=== PATIENT | female | born 1935 | race Caucasian/White ===

== ENCOUNTER 2017-09-03 14:27 | Inpatient (IN) | payer MEDICARE, OTHER ==
[~2017-09-03] VITALS: Ht 157.5 cm; Wt 55.8 kg
[~2017-09-03 14:27] MED LIST: ACETAMINOPHEN325 M1; AVELOX 400 MG400 M1; HI-CAL500 MG; MULTIVITAMINS; NORCO 5-325 TA1 EACH PO; SYNTHROID75 MCG PO; ZESTRIL40 MG
[2017-09-03 14:30] VITALS: BP 118/40
[2017-09-03 14:59] LABS: HEMATOCRIT 35.6 % (37.0-47.0); MCHC 33.7 g/dL (28.0-37.0); MCV 92.1 fL (80.0-100.0); MPV 10.4 fl. (7.2-11.1); NUCLEATED RBCS 0 /100WBC; RBC 3.87 mil/uL (4.20-5.00); RDW-CV 14.5 % (10.5-14.5); WBC 4.9 thou/uL (4.0-11.0)
[2017-09-03 15:08] LABS: PLATELET COUNT* 38 thou/uL (150-400)
[2017-09-03 15:15] LABS: BE -0.9 mmol/L (-2 to +3); HCO3 22.6 mmol/L (22.0-26.0); PCO2 34.1 mmHg (35.0-45.0); PO2 122.7 mmHg (75.0-100.0)
[2017-09-03 15:24] LABS: ANION GAP 9 mmol/L (7-16); BUN 25 mg/dL (7-18); CALCIUM 8.5 mg/dL (8.5-10.1); CHLORIDE 98 mmol/L (98-107); CO2 25 mmol/L (21-32); CREATININE 1.1 mg/dL (0.6-1.3); GLUCOSE 128 mg/dL (70-99); POTASSIUM 3.9 mmol/L (3.5-5.1); SODIUM 132 mmol/L (136-145)
[2017-09-03 15:31] LABS: ALBUMIN 3.2 g/dL (3.4-5.0); ALKALINE PHOSPHATASE 44 U/L (46-116); SGOT 25 U/L (15-37); SGPT 27 U/L (30-65); TOTAL BILIRUBIN 0.4 mg/dL (<0.1-1.0); TOTAL PROTEIN 6.4 g/dL (6.4-8.2); TROPONIN-I LEVEL <0.06 ng/mL (<0.06)
[2017-09-03 15:57] LABS: ABSOLUTE LYMPHOCYTES 1.1 thou/uL (0.8-5.3); ABSOLUTE MONOCYTES 0.5 thou/uL (0.0-1.2); ABSOLUTE NEUTROPHILS 3.2 thou/uL (1.6-8.1)
[2017-09-03 16:00] LABS: PLATELET ESTIMATE DECREASED
[2017-09-03 16:09] LABS: APTT 35.3 Seconds (25.0-31.3); INR 1.1; PROTIME 10.6 Seconds (9.20-11.50)
[2017-09-03 16:21] LABS: URINE BILIRUBIN NEGATIVE (Negative); URINE BLOOD NEGATIVE (Negative); URINE CLARITY CLEAR; URINE COLOR YELLOW; URINE GLUCOSE-RANDOM NEGATIVE (Negative); URINE KETONES TRACE (Negative); URINE LEUKOCYTES-REFLEX TRACE (Negative); URINE NITRITE-REFLEX NEGATIVE (Negative); URINE PROTEIN TRACE (Negative); URINE UROBILINOGEN 0.2 E.U./dl (0.2-1.0)
[2017-09-03 16:32] LABS: HYALINE CASTS >10 Many /LPF (None Seen); MUCUS None Seen strn/LPF (None Seen); SQUAMOUS 4-10 Moderate /LPF (0-3)
[2017-09-03 16:33] LABS: BACTERIA-REFLEX 1-9 Few /HPF (None Seen); CRYSTALS None Seen /LPF (None Seen)
[2017-09-03 16:34] LABS: URINE RBC None Seen /HPF (0-2); URINE WBC-REFLEX 6-15 Few /HPF (0-5)
[2017-09-03 20:00] VITALS: BP 124/52
[2017-09-03 23:53] VITALS: BP 139/55
[2017-09-04] VITALS (7 sets, daily range): BP systolic 125–163; BP diastolic 44–90
[2017-09-04 11:27] LABS: ABSOLUTE LYMPHOCYTES 1.6 thou/uL (0.8-5.3); ABSOLUTE MONOCYTES 0.6 thou/uL (0.0-1.2); ABSOLUTE NEUTROPHILS 1.5 thou/uL (1.6-8.1); BASOPHILS 0.6 %; EOSINOPHILS 0.4 %; HEMATOCRIT 32.5 % (37.0-47.0); HEMOGLOBIN 11.1 gm/dL (12.0-15.0); LYMPHOCYTES 42.4 %; MCH 31.3 pg (26.0-34.0); MCHC 34.1 g/dL (28.0-37.0); MCV 91.8 fL (80.0-100.0); MONOCYTES 15.9 %; MPV 9.4 fl. (7.2-11.1); NUCLEATED RBCS 0 /100WBC; POLYS 40.7 %; RBC 3.54 mil/uL (4.20-5.00); RDW-CV 14.5 % (10.5-14.5); WBC 3.8 thou/uL (4.0-11.0)
[2017-09-04 11:39] LABS: PLATELET COUNT* 46 thou/uL (150-400)
[2017-09-04] MEDS ORDERED: FLONASE 0.05%50 MCG NASAL (11:41)
[2017-09-04 12:00] LABS: CALCIUM 8.1 mg/dL (8.5-10.1); CREATININE 0.6 mg/dL (0.6-1.3); POTASSIUM 3.8 mmol/L (3.5-5.1)
--- NOTE | 2017-09-04 15:55 | 2DMMODE ---
[place] [address] 2 D/M-MODE ECHOCARDIOGRAM Name: IVAN VEE Room: [address] IN [facility]#: [id number] Admission: 09/03/17 Attend Phys: Frank Mcginnis Discharge: Date of : 39 Date of Service: 09/04/17 1555 Report #: [id number] THIS REPORT FOR: //name// APPROVED REPORT Study performed: 09/04/2017 11:27:10 EXAM: Comprehensive 2D, Doppler, and color-flow Echocardiogram Patient Location: In-Patient Room #: [facility] Status: routine BSA: 1.60 HR: 72 bpm BP: 127/47 mmHg Rhythm: NSR Other Information Study Quality: Good Indications Congestive Heart Failure 2D Dimensions LVEF(%): 65.87 (>50%) IVSd: 12.21 (7-11mm) LVOT Diam: 19.57 (18-24mm) LVDd: 37.06 mm PWd: 10.76 (7-11mm) Ascending Ao: 31.54 (22-36mm) LVDs: 23.88 (25-40mm) Aortic Root: 28.87 mm Dempsey's LVEF: 65.87 % Volumes Left Atrial Volume (Systole) LA ESV Index: 27.90 mL/m2 Aortic Valve AoV Peak Sergei.: 1.49 m/s AO Peak Gr.: 8.89 mmHg LVOT Max P.75 mmHg AO Mean Gr.: 5.29 mmHg LVOT Mean P.69 mmHg LVOT Max V: 0.97 m/s AO V2 VTI: 33.34 cm LVOT Mean V: 0.59 m/s KIKO (VTI): 1.96 cm2 LVOT V1 VTI: 21.79 cm Mitral Valve E/A Ratio: 0.82 [place] [address] 2 D/M-MODE ECHOCARDIOGRAM Name: IVAN VEE Room: [address] IN .R.#: [id number] Admission: 09/03/17 Attend Phys: Frank Mcginnis Discharge: Date of : 39 Date of Service: 09/04/17 1555 Report #: [id number] MV Decel. Time: 192.69 ms MV E Max Sergei.: 0.92 m/s MV PHT: 55.88 ms MVA (PHT): 3.94 cm2 TDI E/Lateral E': 10.22 E/Medial E': 8.36 Medial E' Sergei.: 0.11 m/s Lateral E' Sergei.: 0.09 m/s Pulmonary Valve PV Peak Sergei.: 0.82 m/s PV Peak Gr.: 2.68 mmHg Tricuspid Valve TR Peak Gr.: 26.60 mmHg RVSP: 31.00 mmHg Left Ventricle The left ventricle is normal size. There is normal LV segmental wall motion. There is normal left ventricular wall thickness. Left ventricular systolic function is normal. The left ventricular ejection fraction is within the normal range. LVEF is 60-65%. Grade I - abnormal relaxation pattern. Right Ventricle The right ventricle is normal size. The right ventricular systolic function is normal. Atria The left atrium size is normal. The right atrium size is normal. Aortic Valve Mild aortic valve sclerosis. No aortic regurgitation is present. No hemodynamically significant valvular aortic stenosis. Mitral Valve The mitral valve is normal in structure. Trace mitral regurgitation. No evidence of mitral valve stenosis. Tricuspid Valve The tricuspid valve is normal in structure. Mild tricuspid regurgitation. The RVSP is 30-35 mmHg. Pulmonic Valve The pulmonary valve is normal in structure. There is no pulmonic [place] [address] 2 D/M-MODE ECHOCARDIOGRAM Name: VEEIVAN Room: [address] IN [facility]#: [id number] Admission: 09/03/17 Attend Phys: Frank Mcginnis Discharge: Date of : 39 Date of Service: 09/04/17 1555 Report #: [id number] Great Vessels The aortic root is normal in size. IVC is normal in size and collapses with >50% inspiration Pericardium There is no pericardial effusion. <Conclusion> The left ventricle is normal size. There is normal left ventricular wall thickness. Left ventricular systolic function is normal. The left ventricular ejection fraction is within the normal range. LVEF is 60-65%. Grade I - abnormal relaxation pattern. The right ventricle is normal size. The left atrium size is normal. Mild aortic valve sclerosis. No aortic regurgitation is present. No hemodynamically significant valvular aortic stenosis. The mitral valve is normal in structure. Trace mitral regurgitation. Mild tricuspid regurgitation. The RVSP is 30-35 mmHg. IVC is normal in size and collapses with >50% inspiration There is no pericardial effusion. There is normal LV segmental wall motion. <ELECTRONICALLY SIGNED> By: Mor Burrell MD, FACC 09/04/17 1555 1555 1555 Mor Burrell MD, FACC /INF
--- NOTE | 2017-09-04 16:18 | EKG ---
[place] [address] ELECTROCARDIOGRAM REPORT Name: IVAN VEE Room: [address] IN [facility]#: [id number] Admission: 09/03/17 Attend Phys: Mary Anne Polanco Discharge: Date of : 39 Report #: [id number] THIS REPORT FOR: //name// [facility] ED Test Date: 2017-09-03 Test Time: 14:33:39 Pat Name: IVAN VEE Department: Room: Gender: Dietary Tech: Paty CRENSHAW : 1935 Requested By: Melina Bravo Order Number: [id number] MD: Mor Burrell Measurements Intervals [place] Rate: 66 P: 75 CO: 181 QRS: 11 QRSD: 84 T: 73 QT: 396 QTc: 415 Interpretive Statements Sinus rhythm Possible anterior infarct, old Nonspecific T abnormalities, lateral leads Compared to ECG 02/26/2013 11:21:59 Myocardial infarct finding now present T-wave abnormality now present Electronically Signed On 09-04-2017 16:18:26 CDT by Mor Burrell [email or web address] <ELECTRONICALLY SIGNED> By: Mor Burrell MD, [facility] 09/04/17 1618 1433 1433 Mor Burrell MD, [facility] /EPI
[2017-09-04 23:10] LABS: HEPATITIS B SURFACE AG Negative (Negative)
[2017-09-05 01:35] VITALS: BP 120/54
[2017-09-05 03:57] VITALS: BP 133/60
[2017-09-05 05:05] LABS: ABSOLUTE EOSINOPHILS 0.1 thou/uL (0.0-0.7); ABSOLUTE LYMPHOCYTES 1.8 thou/uL (0.8-5.3); ABSOLUTE MONOCYTES 0.6 thou/uL (0.0-1.2); ABSOLUTE NEUTROPHILS 1.5 thou/uL (1.6-8.1); BASOPHILS 0.7 %; EOSINOPHILS 1.6 %; HEMATOCRIT 29.5 % (37.0-47.0); HEMOGLOBIN 9.9 gm/dL (12.0-15.0); LYMPHOCYTES 45.4 %; MCH 31.2 pg (26.0-34.0); MCHC 33.7 g/dL (28.0-37.0); MCV 92.8 fL (80.0-100.0); MONOCYTES 14.7 %; MPV 9.8 fl. (7.2-11.1); NUCLEATED RBCS 0 /100WBC; PLATELET COUNT* 51 thou/uL (150-400); POLYS 37.6 %; RBC 3.18 mil/uL (4.20-5.00); RDW-CV 14.8 % (10.5-14.5); WBC 3.9 thou/uL (4.0-11.0)
[2017-09-05 08:00] VITALS: BP 158/65
[2017-09-05 11:45] VITALS: BP 160/67
[2017-09-05] MEDS ORDERED: HYDROCODON-ACE1 EAC7 PO (13:45)
--- NOTE | 2017-09-10 09:45 | CON ---
[address] [address] CONSULTATION Name: IVAN VEE Room: [address] IN M.R.#: [id number] Admission: 09/03/17 Attend Phys: Mary Anne Polanco Discharge: 09/05/17 Date of : 39 Report #: [id number] THIS REPORT FOR: //name// CC: Len Mcginnis DATE OF SERVICE: 09/04/2017 REASON FOR CONSULTATION: Pancytopenia. SUBJECTIVE: This is a 81-year-old female who has been having progressive symptoms of fatigue, intermittent fever and decreased energy for the last 3 weeks. She has decreased oral intake. Prior to admission, she had multiple episodes of lightheadedness. At the emergency room, she had a CT of the head, which came back negative for any acute process. She had a CT angiogram, which was negative for PE. Initial CBC revealed that she had white count of 4.9, however, dropped to 3.8; after IV fluids, her hemoglobin is 12.0, dropped to 11.1; however, her platelet counts were 38 to up to 46. On her differential, absolute neutrophils 1.5. There was normal RBC. The patient today after she received IV fluid, she has been feeling significantly better. She denies any bruises. No nausea, no vomiting, and no abdominal pain. REVIEW OF SYSTEMS: All systems were reviewed, it was negative except the above. PAST MEDICAL HISTORY: Hypothyroidism, hypertension, and previous pneumonia. PAST SURGICAL HISTORY: Cataract surgery and hemorrhoid surgery. SOCIAL HISTORY: No smoking, no alcohol abuse, and no drug abuse. MEDICATIONS: Per admission list. FAMILY HISTORY: Noncontributory. ALLERGIES: No known allergies. PHYSICAL EXAMINATION: VITAL SIGNS: Today, temperature is 36.6, pulse 78, respiration is 15, and blood pressure is 151/44. GENERAL: The patient was sitting in chair, was not in acute distress. HEENT: Clear to auscultations bilaterally. HEART: Regular rate and rhythm. S1, S2 within normal limits. ABDOMEN: Soft, nontender, nondistended, bowel sounds positive. EXTREMITIES: No edema, no cyanosis, and no clubbing. LABORATORY DATA: As mentioned above. Platelet count today is 46,000; however, [place] [address] CONSULTATION Name: VEEIVAN Room: [address]#: [id number] Admission: 09/03/17 Attend Phys: Mary Anne Polanco Discharge: 09/05/17 Date of : 39 Report #: [id number] in the previous records, her platelet count within normal range back in February 2013, at the level of 237. ASSESSMENT AND PLAN: This is a 81-year-old female who was evaluated because of malaise, fevers, consistent with a viral illness. She was found to have acute thrombocytopenia, which is most likely due to her viral illness. Her PT within normal limits. She has a very mild elevated PTT. Differential did show normal morphology of RBC. No evidence of schistocytes. I would like to obtain a workup including LDH, haptoglobin, direct Vannesa test to rule out any underlying hemolysis. Also, her B12 and folic acid were within normal limits back in 2011, we will repeat that in a.m. In addition to that, we will check CBC in a.m. If her platelet count continues to trend up, the next step will be to observe. Otherwise, we will consider obtaining a bone marrow biopsy. Plan was discussed with the patient. <ELECTRONICALLY SIGNED> By: Cherrie Galvan MD 09/10/17 0945 1241 [id number] Galvan MD /nt
== END 2017-09-05 14:05 | disposition home or self-care (01) | DRG 872 ==
LOC: M.ERS 14:27 → M.TBA-ER 16:27 → M.2W 16:27
PROVIDERS: Internal Medicine; Personal Emergency Response Attendant; ADMIT Internal Medicine
DX: A41.89 Other specified sepsis (principal); E87.1 Hypo-osmolality and hyponatremia; B34.9 Viral infection, unspecified; I95.1 Orthostatic hypotension; D69.6 Thrombocytopenia, unspecified; E03.9 Hypothyroidism, unspecified; I10 Essential (primary) hypertension; Z79.899 Other long term (current) drug therapy; Z98.49 Cataract extraction status, unspecified eye

== ENCOUNTER → 2017-09-10 | Outpatient (CLI) | payer MEDICARE, OTHER ==
[~2017-09-10] MED LIST changes: +FLONASE 0.05%50 MCG NASAL; +HYDROCODON-ACE1 EAC7 PO
[2017-09-10 10:51] LABS: ABSOLUTE BASOPHILS 0.1 thou/uL (0.0-0.2); ABSOLUTE EOSINOPHILS 0.1 thou/uL (0.0-0.7); ABSOLUTE LYMPHOCYTES 3.8 thou/uL (0.8-5.3); ABSOLUTE MONOCYTES 0.8 thou/uL (0.0-1.2); ABSOLUTE NEUTROPHILS 3.4 thou/uL (1.6-8.1); BASOPHILS 0.7 %; EOSINOPHILS 0.9 %; HEMATOCRIT 38.2 % (37.0-47.0); HEMOGLOBIN 12.7 gm/dL (12.0-15.0); LYMPHOCYTES 47.1 %; MCH 31.1 pg (26.0-34.0); MCHC 33.4 g/dL (28.0-37.0); MCV 93.2 fL (80.0-100.0); MONOCYTES 10.1 %; MPV 7.1 fl. (7.2-11.1); NUCLEATED RBCS 0 /100WBC; PLATELET COUNT* 219 thou/uL (150-400); POLYS 41.2 %; RDW-CV 14.5 % (10.5-14.5); WBC 8.1 thou/uL (4.0-11.0)
[2017-09-10 11:01] LABS: ALBUMIN 3.5 g/dL (3.4-5.0); CALCIUM 9.3 mg/dL (8.5-10.1); CREATININE 0.7 mg/dL (0.6-1.3); POTASSIUM 4.3 mmol/L (3.5-5.1); TOTAL BILIRUBIN 0.4 mg/dL (<0.1-1.0); TOTAL PROTEIN 7.4 g/dL (6.4-8.2)
[2017-09-10 11:25] LABS: % SATURATION 28 % (20-39); IRON 79 ug/dL (50-175)
--- NOTE | 2017-09-17 22:00 | HEMONC ---
[address] [address] HEMATOLOGY ONCOLOGY NOTE Name: IVAN VEE Room: [facility]#: [id number] Admission: 09/10/17 Attend Phys: Cherrie Galvan MD Discharge: Date of : 39 Report #: [id number] THIS REPORT FOR: //name// CC: Len Galvan DATE OF SERVICE: 09/10/2017 HEMATOLOGY/ONCOLOGY CLINIC NOTE REASON FOR VISIT: Hospital followup for pancytopenia. HISTORY OF PRESENT ILLNESS: A 81-year-old female was seen on 09/04/2017 because of the pancytopenia. She was admitted because of symptoms of fatigue, fevers and decreased energy. Her platelet count dropped to the level of 38,000; however, upon discharge, her platelet count had been trending up. Same thing for her white count and hemoglobin. The patient was seen today. She has been feeling very well. She denies any fevers. Her energy is back to normal. She denies any bleeding. REVIEW OF SYSTEMS: All systems reviewed. It was negative, except the above. PAST MEDICAL HISTORY: Unchanged from previous visits. SOCIAL HISTORY: Unchanged from previous visits. FAMILY HISTORY: Unchanged from previous visits. MEDICATIONS: Her current medications are losartan 100 mg p.o. daily, Zolpidem 10 mg p.o. daily and levothyroxine 75 mcg p.o. daily. PHYSICAL EXAMINATION: VITAL SIGNS: Today, blood pressure is 104/72, pulse is 66, respirations 16, temperature is 97.3 and pulse is 96% on room air. GENERAL: The patient was sitting in chair, was not in acute distress. LUNGS: Clear to auscultation bilaterally. HEART: Regular rate and rhythm. S1, S2 within normal limits. ABDOMEN: Soft, nontender and nondistended. Bowel sounds positive. EXTREMITIES: No edema, no cyanosis, no clubbing. ASSESSMENT AND PLAN: A 81-year-old female was evaluated because of pancytopenia. Her workup so far has been negative. Most likely due to acute viral illness. I would like to repeat a followup CBC [place] [address] HEMATOLOGY ONCOLOGY NOTE Name: IVAN VEE Room: [facility]#: [id number] Admission: 09/10/17 Attend Phys: Cherrie Galvan MD Discharge: Date of : 39 Report #: [id number] I discussed with the patient if her counts are not recovering, the next step will be to obtain a bone marrow biopsy; however, this is less likely. <ELECTRONICALLY SIGNED> By: Cherrie Galvan MD 09/17/17 2200 1004 1526Mostanislav Galvan MD /nt
== END ==
LOC: M.LAB 00:54 → M.RTH 00:54
PROVIDERS: Internal Medicine
DX: D61.818 Other pancytopenia (principal); D69.6 Thrombocytopenia, unspecified

== ENCOUNTER → 2018-06-20 | Outpatient (CLI) | payer MEDICARE, OTHER | LOC: M.RAD 08:37 | DX: Z12.31 Encounter for screening mammogram for malignant neoplasm of breast (principal) ==

== ENCOUNTER → 2019-01-08 | Outpatient (CLI) | payer MEDICARE, OTHER | LOC: M.RAD 08:30 | DX: Z13.820 Encounter for screening for osteoporosis (principal); M85.88 Other specified disorders of bone density and structure, other site ==